=== PATIENT | male | born 1960 | race Asian ===

== ENCOUNTER 2017-06-09 15:09 | Emergency (ER) | payer OTHER ==
[~2017-06-09] VITALS: Ht 162.6 cm; Wt 67.1 kg
[~2017-06-09 15:09] MED LIST: FERROUS SULFAT325 M3 PO; PERCOCET 5-3251 EACH PO; PRAVACHOL80 M1 PO; PROTONIX40 M3 PO; RW; TOPROL XL25 M1 PO
--- NOTE | 2017-06-09 15:46 | ED GI/GU/ABDOMINAL COMPLAINT ---
History of Present Illness General Chief Complaint: General Adult Stated Complaint: PT WAS SENT TO ED CT SCAN Source: patient Exam Limitations: no limitations Vital Signs & Intake/Output Vital Signs & Intake/Output Vital Signs Date Time Temp Pulse Resp B/P B/P Pulse O2 O2 Flow FiO2 Mean Ox Delivery Rate 06/09 2026 98.0 68 16 124/74 99 Room Air 06/09 1805 98.3 72 16 131/73 98 Room Air 06/09 1603 98 Room Air 06/09 1517 98.7 81 18 137/86 98 Room Air Allergies Coded Allergies: atorvastatin (From LIPITOR) (Intermediate, RASH 01/02/17) Reconcile Medications Clopidogrel Bisulfate (Clopidogrel) 75 MG TABLET 1 TAB PO DAILY CAD (Reported ) Ferrous Sulfate 325 MG (65 MG IRON) TABLET 1 TAB PO DAILY ANEMIA (Reported) Metoprolol Succ XL (Toprol XL) 25 MG TAB 0.5 TAB PO DAILY CAD (Reported) Oxycodone HCl/Acetaminophen (Percocet 5-325 MG Tablet) 5 MG-325 MG TABLET 1 TAB PO Q4-6 PRN postop pain Pantoprazole Sodium (Protonix) 40 MG TABLET.DR 1 TAB PO BID GERD (Reported) Pravastatin Sodium (Pravachol) 40 MG TABLET 1 TAB PO DAILY CHOLESTEROL ( Reported) Triage Note: PT SENT IN BY PCP DR. MURRAY FOR ABSENT BOWEL SOUNDS. PT HAS RECENT DIOGNOSIS OF BOWEL CA WITH RESECTION IN NOVEMBER OF LAST YEAR. PT LAST CHEMO WAS ON THURSDAY AND NOW PT RESENTS WITH ACUTE ABD PAIN. Triage Nurses Notes Reviewed? yes Onset: Abrupt Duration: hour(s): (5 am), constant Timing: recent history Quality/Severity: moderate Radiation: periumbilical Activities at Onset: none HPI: 49-year-old male with a history of colon cancer with a partial colon resection 6 months ago that is currently undergoing chemotherapy comes in with complaints of abdominal pain. Patient reports that he started to experience the pain around 5 AM. It is a twisting pain that is intermittent. Denies any fever chills vomiting. He had a normal bowel movement this morning. He passed gas a couple hours ago. Comes in for further evaluation. (Gianni KAUFFMAN,Toni) Past History Travel History Traveled to [place] past 21 day No Medical History Any Pertinent Medical History? see below for history Neurological: NONE EENT: NONE Cardiovascular: CAD, hypertension, hyperlipidemia, myocardial infarction Respiratory: NONE Gastrointestinal: lower GI bleed Hepatic: NONE Renal: NONE Musculoskeletal: NONE Psychiatric: NONE Endocrine: NONE Blood Disorders: NONE Cancer(s): bladder cancer, colon/rectal cancer History of MRSA: No History of VRE: No History of CDIFF: No Surgical History Surgical History: STENT PLACEMENT (12/2015) BLADDER TUMOR REMOVAL Psychosocial History Who do you live with Spouse What is your primary language French Tobacco Use: Never used ETOH Use: denies use Illicit Drug Use: denies illicit drug use Family History Hx Contributory? No (Toni Dorsey) Review of Systems Review of Systems Constitutional: Reports: no symptoms. EENTM: Reports: no symptoms. Respiratory: Reports: no symptoms. Cardiovascular: Reports: no symptoms. GI: Reports: see HPI. Genitourinary: Reports: no symptoms. Musculoskeletal: Reports: no symptoms. Skin: Reports: no symptoms. Neurological/Psychological: Reports: no symptoms. Hematologic/Endocrine: Reports: no symptoms. Immunologic/Allergic: Reports: no symptoms. All Other Systems: Reviewed and Negative (Toni Dorsey) Physical Exam Physical Exam General Appearance: well developed/nourished, alert, awake, mild distress Head: atraumatic Eyes: Bilateral: normal appearance. Ears, Nose, Throat, Mouth: hearing grossly normal, moist mucous membrane Neck: normal inspection Respiratory: no respiratory distress Cardiovascular: regular rate/rhythm, edema Gastrointestinal: normal bowel sounds, soft, non-tender Back: normal inspection Extremities: normal range of motion Neurologic/Psych: awake, alert, oriented x 3 Core Measures ACS in differential dx? No Sepsis Present: No Sepsis Focused Exam Completed? No (Toni Dorsey) Progress Differential Diagnosis: appendicitis, bowel obstruction, diverticulitis, SBO, ureterolithiasis Plan of Care: Orders Procedure Date/time Status URINALYSIS 06/09 1928 Complete LACTIC ACID 06/09 1846 Complete LIPASE 06/09 1546 Complete LACTIC ACID 06/09 1546 Complete COMPREHENSIVE METABOLIC PANEL 06/09 1546 Complete CBC WITHOUT DIFFERENTIAL 06/09 1546 Complete AMYLASE 06/09 1546 Complete Laboratory Tests 06/09/17 1940: Urine Color YEL, Urine Clarity CLEAR, Urine pH 6.5, Ur Specific [place] 1.010, Urine Protein NEG, Urine Ketones NEG, Urine Nitrite NEG, Urine Bilirubin NEG, Urine Urobilinogen 0.2, Ur Leukocyte Esterase NEG, Ur Microscopic EXAM NOT REQUIRED, Urine Hemoglobin NEG, Urine Glucose NEG 06/09/17 1859: Lactic Acid 0.9 06/09/17 1550: Anion Gap 15, Estimated GFR > 60, BUN/Creatinine Ratio 17.8, Glucose 230 H, Lactic Acid 2.3 H, Calcium 9.5, Total Bilirubin 0.8, AST 24, ALT 30, Alkaline Phosphatase 311 H, Total Protein 7.8, Albumin 4.5, Globulin 3.3, Albumin/ Globulin Ratio 1.4, Amylase 91, Lipase 196, CBC w Diff MAN DIFF ORDERED, RBC 4.95, MCV 89.6, MCH 30.8, MCHC 34.4, RDW 13.7, MPV 7.3 L, Gran % 92.1 H, Lymphocytes % 5.0 L, Monocytes % 2.5, Eosinophils % 0.3, Basophils % 0.1, Absolute Granulocytes 18.9 H, Segmented Neutrophils 74, Band Neutrophils 15 H, Absolute Lymphocytes 1.0 L, Lymphocytes 9 L, Monocytes 2, Absolute Monocytes 0.5, Absolute Eosinophils 0.1, Absolute Basophils 0, Platelet Estimate DECREASED , Poikilocytosis 1+, Anisocytosis 1+, Stomatocytes FEW Diagnostic Imaging: Viewed by Me: CT Scan. Discussed w/RAD: CT Scan. Radiology Impression: PATIENT: STEVEN ESCOBEDO PRESENT AGE : 57 PATIENT ACCOUNT NO: [id number] : 58 LOCATION: [facility] ORDERING PHYSICIAN: Toni KAUFFMAN SERVICE DATE: 06/09/17 EXAM TYPE: CAT - CT ABD & PELVIS W IV CONTRAST EXAMINATION: CT ABDOMEN AND PELVIS WITH CONTRAST CLINICAL INFORMATION: Abdominal pain. Pain around surgical incision for colon cancer COMPARISON: None TECHNIQUE: Multidetector volumetric imaging was performed of the abdomen and pelvis following IV administration of 95 mL of Optiray 320 intravenous contrast. Sagittal and coronal reformatted images were obtained on the technologist's workstation. DLP: 265.44 mGy-cm FINDINGS: LUNG BASES: The visualized lung bases are unremarkable. LIVER, GALLBLADDER, AND BILIARY TREE: The liver is normal in size, shape, and attenuation. No focal hepatic lesion or biliary ductal dilatation is present. The gallbladder is unremarkable with no evidence of radiopaque gallstones, gallbladder wall thickening, or obvious pericholecystic inflammatory changes. PANCREAS: Unremarkable. SPLEEN: Spleen is enlarged measuring 14.5 cm superior inferior. Spleen measures 12.1 cm AP by 7.1 cm transverse. No focal splenic lesion. ADRENAL GLANDS: Unremarkable. KIDNEYS AND URETERS: The kidneys are normal in size, shape, and attenuation. No hydronephrosis, hydroureter, or calculi seen. No perinephric stranding. BLADDER: Unremarkable. GASTROINTESTINAL TRACT: Status post colonic surgery with surgical anastomosis at the mid distal descending colon. Anastomosis is intact. There is no bowel wall thickening. No bowel obstruction. Moderate volume of stool throughout the colon. Surgical suture line at the tip of the cecum consistent with prior appendectomy. The small bowel loops are normal. ABDOMINAL WALL: Midline subcutaneous scar from prior surgical incision. There is no ventral wall hernia. There is no inflammation or focal fluid collection or abscess. The abdominal wall musculature is normal. LYMPH NODES: Normal. VASCULAR: There are scattered vascular calcifications of the distal aorta and common iliac arteries without aneurysm. PELVIC VISCERA: Prostate measures 5 cm transverse. OSSEOUS STRUCTURES: Unremarkable. IMPRESSION: 1. There is a linear scar in the subcutaneous tissue at the midline anterior abdominal wall from prior surgery. There is no acute change of the abdominal wall. 2. Status post prior partial colectomy with surgical anastomosis at the left colon which is intact. Status post appendectomy. No acute change of the bowel. 3. Mild splenomegaly. DICTATED BY: Lan Posadas MD DATE/TIME DICTATED:02/26 DOVETAIL MACHINE OPERATOR:FAM DATE/TIME TRANSCRIBED:06/09/171728 CONFIDENTIAL, DO NOT COPY WITHOUT APPROPRIATE AUTHORIZATION. <Electronically signed in Other Vendor System> SIGNED BY: Lan Posadas MD 06/09/171738 Initial ED EKG: none (Toni Dorsey) Departure Departure Disposition: HOME OR SELF CARE Condition: Stable Clinical Impression Primary Impression: Abdominal pain Referrals: Jazmin Murray MD (PCP/Family) Additional Instructions: Follow-up with your general surgeon and primary care doctor and oncologist. Return if any other concerns worsening symptoms. Return if any pain migrates to the right lower abdomen. Please go over all results of today's visit with your primary care doctor. Contact your primary care doctor to let them know you were here in the emergency room. There may be nonspecific findings which may not be related to your visit today here in the emergency room but may require further evaluation and chronic monitoring by your primary care doctor. If you had a laceration today the chance of foreign body always remains. You should follow-up with your primary care doctor for recheck in 3-5 days for a wound check. If you had an x-ray done there is a chance that a fracture could have been missed on initial read and you should follow-up with your primary care doctor for repeat x-rays if symptoms persist. If your blood pressure was elevated here in the emergency room please have rec[facility] doctor within the next 48. If you were prescribed a narcotic here in the emergency room or any type of controlled substances you're not allowed to drive while taking this medication or operate any type of heavy machinery. Narcotics can make you feel lightheaded dizziness nausea and can cause constipation. You may need to tile picker a stool softener. Thank you for choosing [facility] emergency room. Please return to the emergency room immediately if you have any other concerns worsening of symptoms. Departure Forms: Customer Survey General Discharge Information Comments 06/09/2017 9:03:25 PM Spoke with the substation inspector oncologist for dr rhonda betancourt. He is on nulasta which will explain the white blood cell count being elevated. He currently has no abdominal pain. Spoke with Dr. Cummins. He reviewed the CAT scan. No acute abdomen on exam. At this time safely discharged. White blood cell count be followed up. Both consultants are in agreement with discharge and close interval follow-up. (Gianni KAUFFMAN,Toni) PA/CONTAINER PACKER OPERATOR Co-Sign Statement Statement: ED Attending supervision documentation- x I saw and evaluated the patient. I have also reviewed all the pertinent lab results and diagnostic results. I agree with the findings and the plan of care as documented in the PA's/CONTAINER PACKER OPERATOR's documentation. [] I have reviewed the ED Record and agree with the PA's/CONTAINER PACKER OPERATOR's documentation. [] Additions or exceptions (if any) to the PAs/CONTAINER PACKER OPERATOR's note and plan are summarized below: [] (Nadeem CASTELLON,Medardo)
[2017-06-09 16:02] LABS: ABSOLUTE BASOPHIL COUNT 0 /CUMM (0.0-0.2); ABSOLUTE EOSINOPHIL COUNT 0.1 /CUMM (0.0-0.7); ABSOLUTE GRANULOCYTE CT 18.9 /CUMM (1.4-6.5); ABSOLUTE MONOCYTE COUNT 0.5 /CUMM (0.10-0.60); BASOPHIL % 0.1 % (0.0-2.0); EOSINOPHIL % 0.3 % (0-5); GRANULOCYTE % 92.1 % (42.2-75.2); HEMATOCRIT 44.4 % (42-52); MEAN CORPUSCULAR HGB 30.8 PG (27.0-31.0); MEAN CORPUSCULAR HGB CONC 34.4 G/DL (33.0-37.0); MEAN CORPUSCULAR VOLUME 89.6 FL (80.0-94.0); MEAN PLATELET VOLUME 7.3 FL (7.4-10.4); PLATELET COUNT 130 /CUMM (130-400); RBC DISTRIBUTION WIDTH 13.7 % (11.5-14.5); RED BLOOD CELL CT 4.95 /CUMM (4.70-6.10); WHITE BLOOD CELL COUNT 20.5 /CUMM (4.8-10.8)
--- NOTE | 2017-06-09 17:39 | CT SCAN REPORT ---
EXAMINATION: CT ABDOMEN AND PELVIS WITH CONTRAST CLINICAL INFORMATION: Abdominal pain. Pain around surgical incision for colon cancer COMPARISON: None TECHNIQUE: Multidetector volumetric imaging was performed of the abdomen and pelvis following IV administration of 95 mL of Optiray 320 intravenous contrast. Sagittal and coronal reformatted images were obtained on the technologist's workstation. DLP: 265.44 mGy-cm FINDINGS: LUNG BASES: The visualized lung bases are unremarkable. LIVER, GALLBLADDER, AND BILIARY TREE: The liver is normal in size, shape, and attenuation. No focal hepatic lesion or biliary ductal dilatation is present. The gallbladder is unremarkable with no evidence of radiopaque gallstones, gallbladder wall thickening, or obvious pericholecystic inflammatory changes. PANCREAS: Unremarkable. SPLEEN: Spleen is enlarged measuring 14.5 cm superior inferior. Spleen measures 12.1 cm AP by 7.1 cm transverse. No focal splenic lesion. ADRENAL GLANDS: Unremarkable. KIDNEYS AND URETERS: The kidneys are normal in size, shape, and attenuation. No hydronephrosis, hydroureter, or calculi seen. No perinephric stranding. BLADDER: Unremarkable. GASTROINTESTINAL TRACT: Status post colonic surgery with surgical anastomosis at the mid distal descending colon. Anastomosis is intact. There is no bowel wall thickening. No bowel obstruction. Moderate volume of stool throughout the colon. Surgical suture line at the tip of the cecum consistent with prior appendectomy. The small bowel loops are normal. ABDOMINAL WALL: Midline subcutaneous scar from prior surgical incision. There is no ventral wall hernia. There is no inflammation or focal fluid collection or abscess. The abdominal wall musculature is normal. LYMPH NODES: Normal. VASCULAR: There are scattered vascular calcifications of the distal aorta and common iliac arteries without aneurysm. PELVIC VISCERA: Prostate measures 5 cm transverse. OSSEOUS STRUCTURES: Unremarkable. IMPRESSION: 1. There is a linear scar in the subcutaneous tissue at the midline anterior abdominal wall from prior surgery. There is no acute change of the abdominal wall. 2. Status post prior partial colectomy with surgical anastomosis at the left colon which is intact. Status post appendectomy. No acute change of the bowel. 3. Mild splenomegaly.
[2017-06-09 20:27] VITALS: BP 124/74
== END 2017-06-09 20:32 ==
LOC: ERH 15:09
PROVIDERS: Physician Assistant Medical
DX: R10.33 Periumbilical pain (principal)
CPT/HCPCS: 74177; 81003

== ENCOUNTER 2017-07-15 10:00 | Inpatient (IN) | payer OTHER ==
[~2017-07-15] VITALS: Ht 162.6 cm; Wt 62.1 kg
[2017-07-15 11:43] LABS: ABSOLUTE BASOPHIL COUNT 0.1 /CUMM (0.0-0.2); ABSOLUTE EOSINOPHIL COUNT 0 /CUMM (0.0-0.7); ABSOLUTE GRANULOCYTE CT 7.1 /CUMM (1.4-6.5); ABSOLUTE LYMPH COUNT 0.8 /CUMM (1.2-3.4); ABSOLUTE MONOCYTE COUNT 0.3 /CUMM (0.10-0.60); BASOPHIL % 0.9 % (0.0-2.0); EOSINOPHIL % 0.2 % (0-5); HEMATOCRIT 40.7 % (42-52); MEAN CORPUSCULAR HGB 31.3 PG (27.0-31.0); MEAN CORPUSCULAR HGB CONC 35.2 G/DL (33.0-37.0); MEAN CORPUSCULAR VOLUME 88.8 FL (80.0-94.0); MEAN PLATELET VOLUME 9.1 FL (7.4-10.4); PLATELET COUNT 101 /CUMM (130-400); RBC DISTRIBUTION WIDTH 12.9 % (11.5-14.5); RED BLOOD CELL CT 4.58 /CUMM (4.70-6.10); WHITE BLOOD CELL COUNT 8.4 /CUMM (4.8-10.8)
[2017-07-15 12:13] LABS: GRANULOCYTE % 85.1 % (42.2-75.2)
--- NOTE | 2017-07-15 12:29 | ED GENERAL ADULT ---
History of Present Illness General Chief Complaint: General Adult Stated Complaint: SIB DR WELLS, BS, NO HX OF DM Source: patient, family Exam Limitations: no limitations Vital Signs & Intake/Output Vital Signs & Intake/Output Vital Signs Date Time Temp Pulse Resp B/P B/P Pulse O2 O2 Flow FiO2 Mean Ox Delivery Rate 07/15 1520 66 18 115/68 98 Room Air 07/15 1519 Room Air 07/15 1401 98.6 72 16 111/56 100 Room Air 07/15 1225 98.0 76 17 116/81 100 Room Air 07/15 1014 98.2 74 18 135/84 98 Room Air Allergies Coded Allergies: atorvastatin (From LIPITOR) (Intermediate, RASH 01/02/17) Reconcile Medications Aspirin (Aspirin*) 81 MG TAB.CHEW 1 TAB PO DAILY HEART HEALTH (Reported) Clopidogrel Bisulfate (Clopidogrel) 75 MG TABLET 1 TAB PO DAILY CAD (Reported ) Metoprolol Succ XL (Toprol XL) 25 MG TAB 0.5 TAB PO DAILY CAD (Reported) Pravastatin Sodium (Pravachol) 80 MG TABLET 1 TAB PO DAILY CHOLESTEROL ( Reported) Triage Note: [address] [facility]SSARD [facility] FOR HYPERGLYCEMIA WITH ACCUCHECK IN 500'S AND RECENT FATIGUE AND WEAKNESS X2 WEEKS. ENDORSES POLYDYPSIA, INCREASED URINATION, CRAMPING TO HANDS, BLURRED VISION X1 WEEK. DENIES HEADACHE/N/V/D OR ABDOMINAL PAIN. DENIES HX OF DIABETES. CURRENTLY UNDERGOING CHEMOTHERAPY FOR STAGE 3 COLON CA, PLACED ON NEUTROPENIC PRECAUTIONS AND FACE MASK PROVIDED Triage Nurses Notes Reviewed? yes HPI: Patient is a 57-year-old male with diagnosis one year ago of colon cancer status post partial bowel resection without ostomy, who is currently undergoing chemotherapy every 3 weeks, without radiation, and who is sent in today from his oncology office for profound weakness and hyperglycemia. The patient last received a dosage of chemotherapy 3 weeks ago and in fact was due for his next dosage today. When his called yesterday to inform his oncology team that he has been feeling fatigued, thirsty, and was urinating frequently, they instructed him to come to the office for evaluation rather than infusion today. He was referred in from the office after his blood glucose was found to be greater than 500. Upon my initial encounter the patient is generally nontoxic and in no acute distress, but he does endorse profound fatigue, malaise, weakness, and the rest of the HPI as above. Past History Travel History Traveled to [place] past 21 day No Medical History Any Pertinent Medical History? see below for history Neurological: NONE EENT: NONE Cardiovascular: CAD, hypertension, hyperlipidemia, myocardial infarction Respiratory: NONE Gastrointestinal: lower GI bleed, COLON CA Hepatic: NONE Renal: NONE Musculoskeletal: NONE Psychiatric: NONE Endocrine: NONE Blood Disorders: NONE Cancer(s): bladder cancer, colon/rectal cancer History of MRSA: No History of VRE: No History of CDIFF: No Surgical History Surgical History: STENT PLACEMENT (12/2015) BLADDER TUMOR REMOVAL Psychosocial History Who do you live with Spouse What is your primary language Divehi Tobacco Use: Quit >30 days ago Family History Hx Contributory? No Review of Systems Review of Systems Constitutional: Reports: see HPI, fever, malaise, weakness. EENTM: Reports: no symptoms. Respiratory: Reports: no symptoms. Cardiovascular: Reports: no symptoms. GI: Reports: see HPI. Denies: abdominal pain. Genitourinary: Reports: no symptoms. Musculoskeletal: Reports: no symptoms. Skin: Reports: no symptoms. Neurological/Psychological: Reports: no symptoms. Hematologic/Endocrine: Reports: see HPI, polyuria, polydipsia. Immunologic/Allergic: Reports: no symptoms. All Other Systems: Reviewed and Negative Physical Exam Physical Exam General Appearance: well developed/nourished, no apparent distress, alert, comfortable Comments: HEENT: Inspection of the head reveals a normocephalic cranium with no signs of trauma. Ophtho: Extraocular muscles are intact and pupils are equal and reactive to light bilaterally with no afferent pupillary defect. The sclera are noninjected , and there is no obvious discharge. Neck: The trachea is midline, there is no obvious asymmetry or mass over the thyroid, and there is no midline cervical spine tenderness Respiratory: The lungs are clear and equal to auscultation bilaterally without wheezes, rales, or rhonchi. The patient exhibits no signs of labored breathing. Cardiac: Regular rhythm and non-tachycardic without appreciable murmurs on auscultation. No obvious JVD. GI: Examination of the abdomen reveals no significant focal tenderness in any of the four quadrants. There is negative Clement's sign, negative McBurney's point tenderness, negative Jewel sign, negative Hart-Al sign, and no signs of peritonitis whatsoever on percussion or deep palpation. The skin is intact with no sign of trauma or infection. : Deferred Neuro: The patient is oriented to person, place, time, and situation, with no obvious focal motor deficits. There were no sensory deficits, and the patient exhibit purposeful movement of all 4 extremities. Cranial nerves II through XII are intact, and gait is normal. Behavioral: Calm and cooperative Dermatologic: Dermatologic examination reveals no diffuse rashes or exanthems, no petechiae, no ecchymoses, and no other signs of erythema or infection. Core Measures ACS in differential dx? No CVA/TIA Diagnosis: No Sepsis Present: No Sepsis Focused Exam Completed? No Progress Differential Diagnoses I considered the following diagnoses in my evaluation of the patient: New-onset diabetes, simple hyperglycemia, multiple other possible endocrinologic pathologies Plan of Care: Orders Procedure Date/time Status Regular Diet 07/16 B Active Patient Data 07/15 161 Active ED Holding Orders 07/15 1605 Active Admit to inpatient 07/15 1605 Active Code Status 07/15 1605 Active URINALYSIS 07/15 1116 Complete COMPREHENSIVE METABOLIC PANEL 07/15 1116 Complete CBC WITHOUT DIFFERENTIAL 07/15 1116 Complete Current Medications Sig/Ade Start time Last Medication Dose Stop Time Status Admin Insulin Human Regular 10 UNITS ONCE ONE 07/15 1615 CAN (NovoLIN R) 07/15 1616 Sodium Chloride 1,000 ML BOLUS ONE 07/15 1615 AC 07/15 (Normal Saline 0.9%) 07/15 1714 1530 Laboratory Tests 07/15/17 1320: Urine Color YEL, Urine Clarity CLEAR, Urine pH 6.0, Ur Specific [place] 1.010, Urine Protein NEG, Urine Ketones 15 H, Urine Nitrite NEG, Urine Bilirubin NEG, Urine Urobilinogen 0.2, Ur Leukocyte Esterase NEG, Ur Microscopic EXAM NOT REQUIRED, Urine Hemoglobin NEG, Urine Glucose >=1000 H 07/15/17 1135: Anion Gap 11, Estimated GFR > 60, BUN/Creatinine Ratio 13.8, Glucose 569 *H, Calcium 9.1, Total Bilirubin 0.6, AST 33, ALT 41, Alkaline Phosphatase 207 H, Total Protein 6.8, Albumin 3.9, Globulin 2.9, Albumin/Globulin Ratio 1.3, CBC w Diff NO MAN DIFF REQ, RBC 4.58 L, MCV 88.8, MCH 31.3 H, MCHC 35.2, RDW 12.9, MPV 9.1, Gran % 85.1 H, Lymphocytes % 9.7 L, Monocytes % 4.1, Eosinophils % 0.2, Basophils % 0.9, Absolute Granulocytes 7.1 H, Absolute Lymphocytes 0.8 L, Absolute Monocytes 0.3, Absolute Eosinophils 0, Absolute Basophils 0.1 Initial ED EKG: none Comments: Patient with colon cancer and no history of diabetes presented today for hyperglycemia greater than 500. Laboratory studies were otherwise unremarkable. After 2 L of fluid and no supplemental insulin, because came down to 250. I discussed the case with Dr. Kelsey from endocrinology who recommended hospitalization for further workup. Departure Departure Time of Disposition: 1634 Disposition: STILL A PATIENT Condition: Stable Clinical Impression Primary Impression: Hyperglycemia Referrals: Jazmin Sherman MD (PCP/Family) Departure Forms: Customer Survey General Discharge Information Admission Note Spoke With: Arturo CASTELLON,Meghann Miles Documentation of Exam: Documentation of any treatments & extenuating circumstances including Concerns Regarding Discharge (functional status, medication knowledge or non-compliance, living conditions, etc.) that warrant an admission rather than observation: Patient presented for hyperglycemia which was a new diagnosis for him. No history of diabetes. Discussed case with endocrinology subspecialist who felt that discharge home was unsafe as the patient could decompensate, and that IV fluid rehydration, supplemental insulin, and formal consultation with further laboratory studies is necessary to ensure safety. Admitted for this workup. Critical Care Note Critical Care Note Critical Care Time: non-applicable
[2017-07-15] MEDS ORDERED: ASPIRIN81 M4 PO (12:31)
--- NOTE | 2017-07-15 16:52 | History & Physical ---
Christiano CASTELLON,Dominic 07/15/17 8018: General Information and HPI MD Statement: I have seen and personally examined STEVEN ESCOBEDO and documented this H&P. The patient is a 57 year old M who presented with a patient stated chief complaint of [hyperglycemia and weakness]. Source of Information: patient, family, old records Exam Limitations: no limitations History of Present Illness: Patient is a 57-year-old male with past medical history of colon cancer status past bowel resection without ostomy currently on a chemotherapy every 3 weeks, hypertension, CAD status post NC and stents currently on aspirin, hyperlipidemia presenting this admission after being seen by his oncologist, Dr. Sarah due to weakness and blood sugar of greater than 500. Patient's was present at time of interview. States that patient has not been feeling well over the past one week. Patient endorses hand cramping, blurry vision, polyuria and polydipsia. Patient reports that he has been drinking over 2 L of pop over the past one week. Patient endorses a 10 pound weight loss over the past 3 weeks. Patient reports dizziness and lightheadedness upon standing which has resolved while in the ED. Patient denies any nausea/vomiting, abdominal pain, fever/chills, dysuria/hematuria, shortness of breath, cough or chest pain. Patient's states that she spoke to a nurse on Thursday and was told it was likely that the patient has been taking too much sugar from the large amount of pop he has been ingesting. Patient stopped drinking pop 2 days prior to this admission. Past medical history as above Family history: Significant for brother diagnosed with diabetes in his 40s Allergies: No known allergies Meds: Currently on aspirin 81 mg, metoprolol 12.5 mg, pravastatin 80 mg. Patient was taken off Plavix December 2016. Patient's senior javascript developer is Dr. Norwood who he followed up with 1-2 months prior to this admission. Patient sees the following practitioners: PCP: Boby Sherman MD Heavy Line Technician: Dr. Norwood Fur Trapper: Dr. Garcia Surgeon: Senthil Cummins MD Oncologist: Dr. Sarah Allergies/Medications Allergies: Coded Allergies: atorvastatin (From LIPITOR) (Intermediate, RASH 01/02/17) Past History Travel History Traveled to [place] past 21 day No Medical History Neurological: NONE EENT: NONE Cardiovascular: CAD, hypertension, hyperlipidemia, myocardial infarction Respiratory: NONE Gastrointestinal: lower GI bleed, COLON CA Hepatic: NONE Renal: NONE Musculoskeletal: NONE Psychiatric: NONE Endocrine: NONE Blood Disorders: NONE Cancer(s): bladder cancer, colon/rectal cancer History of MRSA: No History of VRE: No History of CDIFF: No Surgical History Surgical History: STENT PLACEMENT (12/2015) BLADDER TUMOR REMOVAL Review of Systems Review of Systems Constitutional: Reports: see HPI, weakness, unexplained weight loss. Cardiovascular: Denies: no symptoms. Respiratory: Denies: no symptoms. GI: Denies: no symptoms. Genitourinary: Reports: see HPI, frequency. Musculoskeletal: Denies: no symptoms. Skin: Denies: no symptoms. Neurological/Psychological: Reports: numbness, tingling, weakness. Hematologic/Endocrine: Reports: polyuria, polydipsia. Exam & Diagnostic Data Last 24 Hrs of Vital Signs/I&O Vital Signs Date Time Temp Pulse Resp B/P B/P Pulse O2 O2 Flow FiO2 Mean Ox Delivery Rate 07/15 1757 98.5 68 20 128/76 97 Room Air 07/15 1647 98.2 66 18 120/75 99 Room Air 07/15 1520 66 18 115/68 98 Room Air / 1519 Room Air 07/15 1401 98.6 72 16 111/56 100 Room Air 07/15 1225 98.0 76 17 116/81 100 Room Air / 1014 98.2 74 18 135/84 98 Room Air Intake & Output 07/15 1600 /06 0800 06 0000 Intake Total 1000 Output Total Balance 1000 Intake, IV 1000 Patient 137 lb Weight Physical Exam General Appearance Alert, Oriented X3, Cooperative, No Acute Distress Skin No Rashes Skin Temp/Moisture Exam: Warm/Dry Sepsis Skin Exam (color): Normal for Ethnicity HEENT Atraumatic, PERRLA, EOMI, dry mucosal membranes Cardiovascular Regular Rate, Normal S1, Normal S2 Lungs Clear to Auscultation, Normal Air Movement Abdomen Normal Bowel Sounds, Soft, No Tenderness Neurological Normal Speech, Strength at 5/5 X4 Ext, Normal Tone, Sensation Intact, Cranial Nerves 3-12 NL Extremities No Clubbing, No Cyanosis, No Edema, Normal Pulses, No Tenderness/ Swelling Last 24 Hrs of Labs/Nilo: Laboratory Tests 07/15/17 1320: Urine Color YEL, Urine Clarity CLEAR, Urine pH 6.0, Ur Specific [place] 1.010, Urine Protein NEG, Urine Ketones 15 H, Urine Nitrite NEG, Urine Bilirubin NEG, Urine Urobilinogen 0.2, Ur Leukocyte Esterase NEG, Ur Microscopic EXAM NOT REQUIRED, Urine Hemoglobin NEG, Urine Glucose >=1000 H 07/15/17 1135: Anion Gap 11, Estimated GFR > 60, BUN/Creatinine Ratio 13.8, Glucose 569 *H, Hemoglobin A1c Pending, Calcium 9.1, Total Bilirubin 0.6, AST 33, ALT 41, Alkaline Phosphatase 207 H, Total Protein 6.8, Albumin 3.9, Globulin 2.9, Albumin/Globulin Ratio 1.3, CBC w Diff NO MAN DIFF REQ, RBC 4.58 L, MCV 88.8, MCH 31.3 H, MCHC 35.2, RDW 12.9, MPV 9.1, Gran % 85.1 H, Lymphocytes % 9.7 L, Monocytes % 4.1, Eosinophils % 0.2, Basophils % 0.9, Absolute Granulocytes 7.1 H, Absolute Lymphocytes 0.8 L, Absolute Monocytes 0.3, Absolute Eosinophils 0, Absolute Basophils 0.1 Microbiology 07/15 1742 BLOOD: Blood Culture - COLB 07/15 1742 BLOOD: Blood Culture - COLB 07/16 1319 URINE ROUT: Urine Culture - RECD Assessment/Plan Assessment: Patient is a 57-year-old male with past medical history of colon cancer status past bowel resection without ostomy currently on a chemotherapy every 3 weeks, hypertension, CAD status post NC and stents currently on aspirin, hyperlipidemia presenting this admission after being seen by his oncologist, Dr. Sarah due to weakness and hyperglycemia. Patient reported 1 week of polydipsia, polyuria, and lethargy. Patient's BG has been in the 300s to 500s. Patient appears volume depleted with dry mucosal membranes. Labs are signficant for blood glucose of 598, Na of 133, U/A revealing ketones and glycosuria with >1000 glucose. Patient has received 3L of NS in the ED with improvement in his symptoms. Patient is stable with no significant signs of diabetic ketoacidosis and therfore will be admitted to the general medicine floor for management of the followin. New onset diabetes Patient is presenting with classic symptoms with polyruia, polydipsia, + ketonuria, glycosuria, multiple elevated glucose readings. Patient has +family history placing him at higher risk. Patient is currently receiving chemotherapy for colon cancer which puts him at greater risk of infection which may be a precipitating factor. Patient's chemotherapy itself may cause hyperglycemia especially if he is receiving prednisone. Patient is seeing Dr. Nicolas- will confirm with him the chemotherapy regimen. 2. Pseudohyponatremia - When Na of 133 is adjusted for glucose, his corrected Na is 141 (addition of 1.6 mmol/L of Na for every 100 mg per dL increase of glucose ) History of Colon Cancer S/P left hemicolectomy currently receiving chemotherapy 3. History of CAD s/p NC and stent on aspirin only, HTN, HLD Plan: Admit to general medicine Monitor vitals qshift Accuchecks TIDAC/qHS Hemoglobin A1c BEP and CBC in AM CXR U/A Urine culture and blood cultures Start Levemir 10 units (based on 0.4units/kg/day) Continue IV fluid hydration with NS @ 100cc/hr Endocrinology consulted. Appreciate recommendations Novolog SS TID/qHS per endo recommendations Continue home medications: metoprolol, pravastatin, aspirin Diet: Consistent Carb Code: Full code DVT PPx: ALPs, Lovenox As Ranked By This Provider Problem List: 1. Hyperglycemia 2. S/P colectomy Core Measures/Misc (10/26) Acute Coronary Syndrome ACS Diagnosis: No Congestive Heart Failure Congestive Heart Failure Diagnosis No Cerebrovascular Accident CVA/TIA Diagnosis: No VTE (View Protocol) VTE Risk Factors Age>40 No Mechanical VTE Prophylaxis d/t N/A MechProphylax Ordered No VTE Pharm Prophylaxis d/t NA PharmProphylax ordered Sepsis (View protocol) Sepsis Present: No If YES complete Sepsis Event Note If YES complete Sepsis Event Note Meghann Morris MD 07/15/17 8876: General Information and HPI Allergies/Medications Home Med list Aspirin (Aspirin*) 81 MG TAB.CHEW 1 TAB PO DAILY HEART HEALTH (Reported) Metoprolol Succ XL (Toprol XL) 25 MG TAB 0.5 TAB PO DAILY CAD (Reported) Pravastatin Sodium (Pravachol) 80 MG TABLET 1 TAB PO DAILY CHOLESTEROL ( Reported) Past Family/Social History Psychosocial History Other Social History: Family history not contributory to present illness. Core Measures/Misc (10/26) Sepsis (View protocol) If YES complete Sepsis Event Note If YES complete Sepsis Event Note Attending MD Review Statement Attending Statement Attending MD Statement: examined this patient, discuss w/resident/PA/FINANCIAL SERVICES REPRESENTATIVE, agreed w/resident/PA/FINANCIAL SERVICES REPRESENTATIVE, reviewed EMR data (avail), discussed with nursing, reviewed images Attending Assessment/Plan: 57-year-old male past medical history of colon CA status post partial colectomy and actively receiving chemotherapy. He also has a history of coronary artery disease and has had a stent placed in December 2015. He gets chemotherapy periodically at the [facility] but for the past few weeks has been feeling very fatigued, with polyuria, polydipsia and blurry vision. When he went to the [facility] today his blood sugar was checked and it was over 500 and he was sent to the emergency room. He does not have an anion gap acidosis however he does have ketones in the urine, is visibly dehydrated and hyponatremic. At this point will bring him into GEN med, hydrate him with IV normal saline. The ER already called Dr. Kelsey from endocrinology to see him and will follow his recommendations. He will need basal and bolus insulin coverage given that he is a brand-new diabetic. There is no obvious focus for infection but given that he is actively getting chemotherapy will get blood cultures, UA, urine culture and chest x-ray. We'll continue his aspirin, Plavix, beta robby and statin. We'll put him on DVT prophylaxis and follow closely. Tabatha Dodson 07/15/17 1746: Core Measures/Misc (10/26) Sepsis (View protocol) If YES complete Sepsis Event Note If YES complete Sepsis Event Note Resident Review Statement Other Findings: Patient is 57-year-old male with past medical history of corneal heart disease, hypertension, hyperlipidemia, NC status post stent treatment placement 2 years ago, colon cancer status post resection in 2017 with ongoing chemotherapy (every 3 weeks) with Dr. WELLS. Patient went for his chemotherapy today when he was found to have blood sugar off 569. Patient was advised to come to ER. In ER his fingersticks remained 489, 349, 256. Patient reported classical symptoms of new onset diabetes with polydipsia, polyuria, blurring of vision, weight loss of 10 pounds in last 3 weeks. Of note patient mentions that since last week he has been drinking a lot of nondiet sodas. Patient denies any current source of infection, denies cough, burning micturition, any wounds or cuts on the body. In ER his labs and vitals as above. Will admit the patient on Gen. medicine floor, continue him on IV fluids for 2-4 L, check his fingersticks tid/hs, based on patient's weight, he should get 10 units of Levemir at baseline and low-dose NovoLog sliding scale. We'll also obtain endocrinology consult. We will also check his HbA1c We'll also evaluate the patient for possible source of infection will get chest x-ray, urine culture, blood culture and follow-up. Patient reports that he is on aspirin, beta robby and statin will continue. DVT prophylaxis Lovenox Patient is full code
--- NOTE | 2017-07-15 17:55 | Cons- Endocrinology ---
General Information and HPI Consulting Request Date of Consult: 07/15/17 Requested By: medical team Reason for Consult: uncontrolled diabetes Source of Information: patient, family, old records Exam Limitations: no limitations History of Present Illness: This 57-year-old male has not been feeling well. He noticed blurred vision, increased thirst, increased urination and at least a 10 pound weight loss over the past few weeks. He went to his oncology appointment today and his blood sugar was checked and was over 500. The patient denies any previous history of diabetes. His brother does have diabetes. This patient has a history of colon cancer. He has had a resection of his colon is being treated with chemotherapy. He has numbness and tingling of his fingers or toes and has been told this is secondary to the chemotherapy. The patient also has a history of cardiovascular disease. His status post stents for coronary artery disease and has been treated for hypertension and hyperlipidemia. He has a previous history of myocardial infarction. His lab work when he came to the ER shows glucose 569 BUN 11 creatinine 0.8 sodium 133 potassium 4.2 chloride 98 CO2 24 anion gap normal at 11 alk phos mildly elevated otherwise liver tests are normal. Allergies/Medications Allergies: Coded Allergies: atorvastatin (From LIPITOR) (Intermediate, RASH 01/02/17) Home Med List: Aspirin (Aspirin*) 81 MG TAB.CHEW 1 TAB PO DAILY HEART HEALTH (Reported) Insulin Aspart, Recombinant (Novolog Flexpen) 100 UNIT/ML INSULN.PEN 0 SC SEE ADMIN CRITERIA DIABETES BG <80 - drink juice 80-150 3 units 151-200 4 201-250 5 251-300 6 301-350 7 351-400 8 >400 -8, call Insulin Detemir (Levemir Flextouch) 100 UNIT/ML (3 ML) INSULN.PEN 6 UNITS SC AT BEDTIME DIABETES MELLITUS . Metoprolol Succ XL (Toprol XL) 25 MG TAB 0.5 TAB PO DAILY CAD (Reported) Pravastatin Sodium (Pravachol) 80 MG TABLET 1 TAB PO DAILY CHOLESTEROL ( Reported) Current Medications: Current Medications Sig/Ade Start time Last Medication Dose Route Stop Time Status Admin Acetaminophen 650 MG Q8P PRN 07/15 1800 UNVr PO Aspirin 81 MG DAILY 07/16 899 AC PO Enoxaparin Sodium 40 MG DAILY 07/16 899 UNVr SC Insulin Aspart 0 TIDAC 06/07 0800 AC SC Insulin Human Regular 10 UNITS ONCE ONE 07/15 1615 CAN IV 07/15 1616 Metoprolol Succinate 12.5 MG DAILY 07/16 0900 AC PO Pravastatin Sodium 80 MG 1700 07/16 1700 AC PO Sodium Chloride 1,000 ML Q10H 07/15 1730 AC IV Sodium Chloride 1,000 ML BOLUS ONE 07/15 1615 DC 07/15 IV 07/15 1714 1530 Sodium Chloride 1,000 ML BOLUS ONE 07/15 1230 DC 07/15 IV 07/15 1329 1230 Sodium Chloride 1,000 ML BOLUS ONE 07/15 1130 DC 07/15 IV 07/15 1229 1135 Review of Systems Review of Systems Constitutional: Denies: chills, fever. Cardiovascular: Denies: chest pain. Respiratory: Denies: short of breath. GI: Denies: abdominal pain, vomiting. Genitourinary: Reports: frequency. Musculoskeletal: Denies: back pain. Skin: Reports: no symptoms. Neurological/Psychological: Reports: paresthesia, tingling. Past History Travel History Traveled to [place] past 21 day No Medical History Neurological: NONE EENT: NONE Cardiovascular: CAD, hypertension, hyperlipidemia, myocardial infarction Respiratory: NONE Gastrointestinal: lower GI bleed, COLON CA Hepatic: NONE Renal: NONE Musculoskeletal: NONE Psychiatric: NONE Endocrine: NONE Blood Disorders: NONE Cancer(s): bladder cancer, colon/rectal cancer Surgical History Surgical History: STENT PLACEMENT (12/2015) BLADDER TUMOR REMOVAL Exam & Diagnostic Data Last 24 Hrs of Vital Signs/I&O Vital Signs Date Time Temp Pulse Resp B/P B/P Pulse O2 O2 Flow FiO2 Mean Ox Delivery Rate 07/15 1647 98.2 66 18 120/75 99 Room Air 07/15 1520 66 18 115/68 98 Room Air 07/15 1519 Room Air 07/15 1401 98.6 72 16 111/56 100 Room Air 07/15 1225 98.0 76 17 116/81 100 Room Air 07/15 1014 98.2 74 18 135/84 98 Room Air Intake & Output 07/15 1600 06 0800 06 0000 Intake Total 1000 Output Total Balance 1000 Intake, IV 1000 Patient 137 lb Weight Physical Exam General Appearance: well developed/nourished Head: normal appearance Eyes: Bilateral: normal appearance. Neck: normal inspection Respiratory: normal breath sounds Cardiovascular: regular rate/rhythm Gastrointestinal: normal bowel sounds Extremities: normal inspection Labs/Nilo Results: Laboratory Tests 07/15 07/15 1320 1135 Chemistry Sodium (137 - 145 mmol/L) 133 L Potassium (3.5 - 5.1 mmol/L) 4.2 Chloride (98 - 107 mmol/L) 98 Carbon Dioxide (22 - 30 mmol/L) 24 Anion Gap (5 - 16) 11 BUN (9 - 20 mg/dL) 11 Creatinine (0.7 - 1.2 mg/dL) 0.8 Estimated GFR (>60 ml/min) > 60 BUN/Creatinine Ratio (7 - 25 %) 13.8 Glucose (65 - 99 mg/dL) 569 *H Hemoglobin A1c (4.2 - 5.8 %) Pending Calcium (8.4 - 10.2 mg/dL) 9.1 Total Bilirubin (0.2 - 1.3 mg/dL) 0.6 AST (17 - 59 U/L) 33 ALT (21 - 72 U/L) 41 Alkaline Phosphatase (< 127 U/L) 207 H Total Protein (6.3 - 8.2 g/dL) 6.8 Albumin (3.5 - 5.0 g/dL) 3.9 Globulin (1.9 - 4.2 gm/dL) 2.9 Albumin/Globulin Ratio (1.1 - 2.2 %) 1.3 Hematology CBC w Diff NO MAN DIFF REQ WBC (4.8 - 10.8 /CUMM) 8.4 RBC (4.70 - 6.10 /CUMM) 4.58 L Hgb (14.0 - 18.0 G/DL) 14.3 Hct (42 - 52 %) 40.7 L MCV (80.0 - 94.0 FL) 88.8 MCH (27.0 - 31.0 PG) 31.3 H MCHC (33.0 - 37.0 G/DL) 35.2 RDW (11.5 - 14.5 %) 12.9 Plt Count (130 - 400 /CUMM) 101 L MPV (7.4 - 10.4 FL) 9.1 Gran % (42.2 - 75.2 %) 85.1 H Lymphocytes % (20.5 - 51.1 %) 9.7 L Monocytes % (1.7 - 9.3 %) 4.1 Eosinophils % (0 - 5 %) 0.2 Basophils % (0.0 - 2.0 %) 0.9 Absolute Granulocytes (1.4 - 6.5 /CUMM) 7.1 H Absolute Lymphocytes (1.2 - 3.4 /CUMM) 0.8 L Absolute Monocytes (0.10 - 0.60 /CUMM) 0.3 Absolute Eosinophils (0.0 - 0.7 /CUMM) 0 Absolute Basophils (0.0 - 0.2 /CUMM) 0.1 Urines Urine Color (YEL,AMB,STR) YEL Urine Clarity (CLEAR) CLEAR Urine pH (5.0 - 8.0) 6.0 Ur Specific [place] (1.001 - 1.035) 1.010 Urine Protein (NEG,<30 MG/DL) NEG Urine Ketones (NEG) 15 H Urine Nitrite (NEG) NEG Urine Bilirubin (NEG) NEG Urine Urobilinogen (0.1 - 1.0 EU/dl) 0.2 Ur Leukocyte Esterase (NEG) NEG Ur Microscopic EXAM NOT REQUIRED Urine Hemoglobin (NEG) NEG Urine Glucose (N MG/DL) >=1000 H Assessment/Plan Assessment/Plan 57-year-old male with a known history of colon cancer status post resection of his colon and now receiving chemotherapy came to the emergency room because he was found to have high blood sugar. He was symptomatic with increased thirst and increased urination, and blurred vision prior to admission. He also has numbness and tingling of his fingers or toes but has been told this is secondary to the chemotherapy he is receiving. When he was thirsty he would drink regular soda because he did not realize he had diabetes. The patient presents with a high sugar of 569 and evidence of dehydration and hyponatremia. He has a normal carbon dioxide and anion gap so there is no evidence of significant ketoacidosis. The patient has already received 3 L of normal saline. At this time I would suggest placing the patient on Levemir 10 units once a day to start tonight. In addition we should place him on sliding scale NovoLog before meals. Sliding scale NovoLog before meals should be 80-150 give 3 units NovoLog, 151- 200 give 4 units NovoLog, 201-250 give 5 units NovoLog, 251-300 give 6 units NovoLog, 301-350 give 7 units NovoLog, 351-400 give 8 units NovoLog. A separate sliding scale NovoLog should be written at bedtime. Sliding scale NovoLog at bedtime should be less than 250 give no insulin, 251-300 give 2 units NovoLog 301-350 give 3 units NovoLog 351-400 give 4 units NovoLog. We need to order a diabetic diet for this patient. He needs dietary instruction. In addition he will need to be taught how to use a glucose meter to test his sugar and also how to administer insulin. Consult Acknowledgment - Thank you for your consult request.
[2017-07-15 17:57] VITALS: BP 128/76
--- NOTE | 2017-07-15 21:27 | RADIOLOGY REPORT ---
EXAMINATION: XR CHEST CLINICAL INFORMATION: EVALUATE FOR ANY SOURCE OF INFECTION COMPARISON: Chest x-ray 01/06/2017 TECHNIQUE: 2 views of the chest were obtained. FINDINGS: The central port catheter is is been placed via a right subclavian approach. The catheter is coiled over the base of the right neck with the catheter tip at the right superior mediastinum. There is no pneumothorax. Lungs are clear. Cardiac and mediastinal contours are normal. No pulmonary vascular congestion. No pleural effusion. IMPRESSION: 1. Central port catheter has been placed via a right subclavian approach. The catheter is coiled over the base of the right neck with the catheter tip at the right superior mediastinum. 2. No acute abnormality of the chest. Lungs are clear.
[2017-07-15 23:20] VITALS: BP 115/77
[2017-07-16 05:59] LABS: ABSOLUTE BASOPHIL COUNT 0 /CUMM (0.0-0.2); ABSOLUTE EOSINOPHIL COUNT 0 /CUMM (0.0-0.7); ABSOLUTE GRANULOCYTE CT 5.3 /CUMM (1.4-6.5); ABSOLUTE MONOCYTE COUNT 0.4 /CUMM (0.10-0.60); BASOPHIL % 0.2 % (0.0-2.0); EOSINOPHIL % 0.4 % (0-5); GRANULOCYTE % 78.7 % (42.2-75.2); HEMATOCRIT 36.3 % (42-52); MEAN CORPUSCULAR HGB 31.2 PG (27.0-31.0); MEAN CORPUSCULAR HGB CONC 34.7 G/DL (33.0-37.0); MEAN CORPUSCULAR VOLUME 89.8 FL (80.0-94.0); MEAN PLATELET VOLUME 8.1 FL (7.4-10.4); PLATELET COUNT 96 /CUMM (130-400); RBC DISTRIBUTION WIDTH 12.9 % (11.5-14.5); RED BLOOD CELL CT 4.04 /CUMM (4.70-6.10); WHITE BLOOD CELL COUNT 6.8 /CUMM (4.8-10.8)
[2017-07-16 06:40] VITALS: BP 115/71
--- NOTE | 2017-07-16 07:21 | PN- Housestaff ---
Christiano CASTELLON,Dominic 07/16/17 0721: Subjective Follow-up For: New onset diabetes Colon cancer s/p resection on chemotherapy via port-a-cath - coiled on XRay Pseudohyponatremia - resolved Subjective: Patient was seen and examined today. Patients BG overnight: 105, 259, 256, 349, 489 Review of Systems Constitutional: Reports: see HPI. Objective Last 24 Hrs of Vital Signs/I&O Vital Signs Date Time Temp Pulse Resp B/P B/P Pulse O2 O2 Flow FiO2 Mean Ox Delivery Rate 07/16 0640 97.9 60 18 115/71 98 Room Air 06/ 2320 98.2 68 20 115/77 95 Room Air 06/ 1757 98.5 68 20 128/76 97 Room Air 06/06 1647 98.2 66 18 120/75 99 Room Air / 1520 66 18 115/68 98 Room Air /06 1519 Room Air 06/ 1401 98.6 72 16 111/56 100 Room Air / 1225 98.0 76 17 116/81 100 Room Air / 1014 98.2 74 18 135/84 98 Room Air Intake & Output 07/16 0800 06/ 0000 06/06 1600 Intake Total 184 622 9804 Output Total 400 Balance 514 640 3233 Intake, IV 505 829 5828 Output, Urine 400 Patient 137 lb 137 lb Weight Weight Reported by Patient Measurement Method Physical Exam General Appearance: Alert, Oriented X3, Cooperative, No Acute Distress Skin Temp/Moisture Exam: Warm/Dry HEENT: Atraumatic, Mucous Membr. moist/pink Cardiovascular: Regular Rate, Normal S1, Normal S2, No Murmurs Lungs: Clear to Auscultation, Normal Air Movement Abdomen: Normal Bowel Sounds, Soft, No Tenderness Neurological: Normal Speech, Strength at 5/5 X4 Ext, Normal Tone, Sensation Intact, Cranial Nerves 3-12 NL Extremities: No Clubbing, No Cyanosis, No Edema, Normal Pulses, No Tenderness/ Swelling Vascular: Normal Pulses, Pulses Symmetrical Last 24 Hrs of Lab/Nilo Results Last 24 Hrs of Labs/Mics: Laboratory Tests 07/16/17 0545: Anion Gap 7, Estimated GFR > 60, BUN/Creatinine Ratio 11.4, CBC w Diff NO MAN DIFF REQ, RBC 4.04 L, MCV 89.8, MCH 31.2 H, MCHC 34.7, RDW 12.9, MPV 8.1, Gran % 78.7 H, Lymphocytes % 15.1 L, Monocytes % 5.6, Eosinophils % 0.4, Basophils % 0.2, Absolute Granulocytes 5.3, Absolute Lymphocytes 1.0 L, Absolute Monocytes 0.4, Absolute Eosinophils 0, Absolute Basophils 0 07/15/17 1320: Urine Color YEL, Urine Clarity CLEAR, Urine pH 6.0, Ur Specific [place] 1.010, Urine Protein NEG, Urine Ketones 15 H, Urine Nitrite NEG, Urine Bilirubin NEG, Urine Urobilinogen 0.2, Ur Leukocyte Esterase NEG, Ur Microscopic EXAM NOT REQUIRED, Urine Hemoglobin NEG, Urine Glucose >=1000 H 07/15/17 1135: Anion Gap 11, Estimated GFR > 60, BUN/Creatinine Ratio 13.8, Glucose 569 *H, Hemoglobin A1c Pending, Calcium 9.1, Total Bilirubin 0.6, AST 33, ALT 41, Alkaline Phosphatase 207 H, Total Protein 6.8, Albumin 3.9, Globulin 2.9, Albumin/Globulin Ratio 1.3, CBC w Diff NO MAN DIFF REQ, RBC 4.58 L, MCV 88.8, MCH 31.3 H, MCHC 35.2, RDW 12.9, MPV 9.1, Gran % 85.1 H, Lymphocytes % 9.7 L, Monocytes % 4.1, Eosinophils % 0.2, Basophils % 0.9, Absolute Granulocytes 7.1 H, Absolute Lymphocytes 0.8 L, Absolute Monocytes 0.3, Absolute Eosinophils 0, Absolute Basophils 0.1 Microbiology 07/15 2210 BLOOD: Blood Culture - RECD 07/15 2205 BLOOD: Blood Culture - RECD 07/15 1320 URINE ROUT: Urine Culture - RECD Assessment/Plan Assessment: Patient is a 57-year-old male with past medical history of colon cancer status past bowel resection without ostomy currently on a chemotherapy every 3 weeks, hypertension, CAD status post [place] and stents currently on aspirin, hyperlipidemia presenting this admission after being seen by his oncologist, Dr. Sarah due to weakness and hyperglycemia. Patient reported 1 week of polydipsia, polyuria, and lethargy. Patient's BG has been in the 300s to 500s. Patient appears volume depleted with dry mucosal membranes. Labs are signficant for blood glucose of 598, Na of 133, U/A revealing ketones and glycosuria with >1000 glucose. Patient has received 3L of NS in the ED with improvement in his symptoms. Patient is stable with no significant signs of diabetic ketoacidosis and therfore will be admitted to the general medicine floor for management of the followin. New onset diabetes Patient is presenting with classic symptoms with polyruia, polydipsia, + ketonuria, glycosuria, multiple elevated glucose readings. Patient has +family history placing him at higher risk. Patient is currently receiving chemotherapy for colon cancer which puts him at greater risk of infection which may be a precipitating factor. Patient's chemotherapy itself may cause hyperglycemia especially if he is receiving prednisone. Spoke to Dr. Nicolas today- patient is receiving folfox which itself does not cause hyperglycemia however the suspension it is in has a significant amount of glucose. Patient does also receive steroids which may have precipitated this event. Patient's Hemoglobin A1c today was 12.4. - patient's sugars today have improved signficantly with improvement in his symptoms as well 2. Pseudohyponatremia - When Na of 133 is adjusted for glucose, his corrected Na is 141 (addition of 1.6 mmol/L of Na for every 100 mg per dL increase of glucose ) History of Colon Cancer S/P left hemicolectomy currently receiving chemotherapy 3. History of CAD s/p [place] and stent on aspirin only, HTN, HLD 4. History of Colon Cancer s/p resection with a Port Cath in the Right subclavian I spoke to Dr. Sousa in IR today who reviewed the chest xray. Stated the port cath does need to be adjusted prior to patient's chemotherapy next week. Patient had the port placed by surgery (Dr. Lund) in December 2016. Plan: Admit to general medicine Monitor vitals qshift Accuchecks TIDAC/qHS Follow up Urine culture and blood cultures Decreased Levemir to 6 units per endo Discontinued IV fluid hydration with NS @ 100cc/hr Endocrinology consulted. Appreciate recommendations Novolog SS TID/qHS per endo recommendations Continue home medications: metoprolol, pravastatin, aspirin Will require diabetic teaching prior to discharge Diet: Consistent Carb Code: Full code DVT PPx: ALPs, Lovenox Problem List: 1. Diabetes mellitus, new onset Pain Ratin Pain Location: n/a Pain Goal: Remain pain free Pain Plan: n/a Tomorrow's Labs & Rationales: giovanny Copeland MD,Breana 07/16/17 1237: Attending MD Review Statement Attending Statement Attending MD Statement: examined this patient, discuss w/resident/PA/WAFER FABRICATION TECHNICIAN, agreed w/resident/PA/WAFER FABRICATION TECHNICIAN, discussed with family, reviewed EMR data (avail), discussed with nursing, discussed with case mgmt, amended to note Attending Assessment/Plan: Patient is a very pleasant middle-aged gentleman who was unfortunately being newly diagnosed with diabetes mellitus. Given his significantly elevated A1c level he will need to be managed with insulin at the very least initially. Patient and are in agreement with this plan. His glucose levels have improved compared to presentation. We will monitor him on the current insulin regimen recommended by the endocrinology service. Diabetic teaching as well as teaching by the nursing staff on use of insulin therapy will be initiated today. Glucose levels continue to improve or no untoward hypoglycemia he may be discharged home tomorrow. He is to follow-up with his primary care provider and he will be provided a referral to the endocrinology service as well. Urinalysis shows no evidence of proteinuria. No need for starting STAR inhibitor or ARB therapy for now. Imaging report shows his Port-A-Cath is coiled. Recommend evaluation by the IR service.
--- NOTE | 2017-07-16 08:24 | PN- Diabetes ---
Assessment/Plan Diabetes Assessment: The patient feels better today. His blood sugar was down to 105 this morning. He received 10 units of Levemir last night. He is also going to be started on sliding scale NovoLog. I spoke with Dr. Sepulveda and the patient does receive a large dose of dexamethasone with each of his chemotherapy treatments. His treatments are every 3 weeks. He has about 3 treatments left. Plan: Suggest reduce Levemir to 6 units once a day at bedtime. Continue sliding scale NovoLog before meals and at bedtime as previously written. The patient should be on a diabetic diet consistent carbohydrate 2. We need to monitor her sugars in the hospital today. The patient is well hydrated at present and his IV fluids can be stopped. Increase activity. Subjective Subjective: Feels improved Review of Systems Constitutional: Denies: chills, fever. Cardiovascular: Denies: chest pain. Respiratory: Denies: short of breath. Gastrointestinal: Denies: abdominal pain, nausea, vomiting. Skin: Reports: no symptoms. Objective Last 24 Hrs of Vital Signs/I&O Vital Signs Date Time Temp Pulse Resp B/P B/P Pulse O2 O2 Flow FiO2 Mean Ox Delivery Rate 07/16 0640 97.9 60 18 115/71 98 Room Air 06/06 2320 98.2 68 20 115/77 95 Room Air 06/06 1757 98.5 68 20 128/76 97 Room Air 06/06 1647 98.2 66 18 120/75 99 Room Air 06/06 1520 66 18 115/68 98 Room Air 06/06 1519 Room Air 06/06 1401 98.6 72 16 111/56 100 Room Air 06/06 1225 98.0 76 17 116/81 100 Room Air 06/06 1014 98.2 74 18 135/84 98 Room Air Intake & Output 07/16 1600 06/07 0800 06/07 0000 Intake Total 800 300 Output Total 400 Balance 400 300 Intake, IV 800 300 Output, Urine 400 Patient 137 lb Weight Weight Reported by Patient Measurement Method Physical Exam General Appearance: alert, awake, comfortable Neck: normal inspection Respiratory: normal breath sounds Cardiovascular: regular rate/rhythm Abdomen: normal bowel sounds Extremities: normal inspection Current Medications: Current Medications Sig/Ade Start time Last Medication Dose Route Stop Time Status Admin Acetaminophen 650 MG Q8P PRN 07/15 1800 AC PO Aspirin 81 MG DAILY 07/16 0900 AC PO Enoxaparin Sodium 40 MG DAILY 07/16 899 AC SC Insulin Aspart 0 AT BEDTIME 07/16 2100 DC SC Insulin Aspart 0 TIDAC 07/17 799 AC SC Insulin Aspart 0 AT BEDTIME 07/15 2215 AC 07/15 SC 2232 Insulin Detemir 10 UNITS AT BEDTIME 07/15 2100 AC 07/15 SC 2202 Insulin Detemir 10 UNITS .[5 PM ] 07/15 1915 CAN SC Insulin Human Regular 10 UNITS ONCE ONE 07/15 1615 CAN IV 07/15 1616 Metoprolol Succinate 12.5 MG DAILY 07/16 899 AC PO Pravastatin Sodium 80 MG 1700 07/16 1700 AC PO Sodium Chloride 1,000 ML Q10H 07/15 1730 AC 07/16 IV 0338 Sodium Chloride 1,000 ML BOLUS ONE 07/15 1615 DC 07/15 IV 07/15 1714 1530 Sodium Chloride 1,000 ML BOLUS ONE 07/15 1230 DC 07/15 IV 07/15 1329 1230 Sodium Chloride 1,000 ML BOLUS ONE 07/15 1130 DC 07/15 IV 07/15 1229 1135 Findings Pertinent Lab/Nilo Results: Laboratory Tests 07/16 07/15 0545 1320 Chemistry Sodium (137 - 145 mmol/L) 139 Potassium (3.5 - 5.1 mmol/L) 3.5 Chloride (98 - 107 mmol/L) 107 Carbon Dioxide (22 - 30 mmol/L) 25 Anion Gap (5 - 16) 7 BUN (9 - 20 mg/dL) 8 L Creatinine (0.7 - 1.2 mg/dL) 0.7 Estimated GFR (>60 ml/min) > 60 BUN/Creatinine Ratio (7 - 25 %) 11.4 Glucose (65 - 99 mg/dL) Pending Hematology CBC w Diff NO MAN DIFF REQ WBC (4.8 - 10.8 /CUMM) 6.8 RBC (4.70 - 6.10 /CUMM) 4.04 L Hgb (14.0 - 18.0 G/DL) 12.6 L Hct (42 - 52 %) 36.3 L MCV (80.0 - 94.0 FL) 89.8 MCH (27.0 - 31.0 PG) 31.2 H MCHC (33.0 - 37.0 G/DL) 34.7 RDW (11.5 - 14.5 %) 12.9 Plt Count (130 - 400 /CUMM) 96 L MPV (7.4 - 10.4 FL) 8.1 Gran % (42.2 - 75.2 %) 78.7 H Lymphocytes % (20.5 - 51.1 %) 15.1 L Monocytes % (1.7 - 9.3 %) 5.6 Eosinophils % (0 - 5 %) 0.4 Basophils % (0.0 - 2.0 %) 0.2 Absolute Granulocytes (1.4 - 6.5 /CUMM) 5.3 Absolute Lymphocytes (1.2 - 3.4 /CUMM) 1.0 L Absolute Monocytes (0.10 - 0.60 /CUMM) 0.4 Absolute Eosinophils (0.0 - 0.7 /CUMM) 0 Absolute Basophils (0.0 - 0.2 /CUMM) 0 Urines Urine Color (YEL,AMB,STR) YEL Urine Clarity (CLEAR) CLEAR Urine pH (5.0 - 8.0) 6.0 Ur Specific [place] (1.001 - 1.035) 1.010 Urine Protein (NEG,<30 MG/DL) NEG Urine Ketones (NEG) 15 H Urine Nitrite (NEG) NEG Urine Bilirubin (NEG) NEG Urine Urobilinogen (0.1 - 1.0 EU/dl) 0.2 Ur Leukocyte Esterase (NEG) NEG Ur Microscopic EXAM NOT REQUIRED Urine Hemoglobin (NEG) NEG Urine Glucose (N MG/DL) >=1000 H 06/06 1135 Chemistry Sodium (137 - 145 mmol/L) 133 L Potassium (3.5 - 5.1 mmol/L) 4.2 Chloride (98 - 107 mmol/L) 98 Carbon Dioxide (22 - 30 mmol/L) 24 Anion Gap (5 - 16) 11 BUN (9 - 20 mg/dL) 11 Creatinine (0.7 - 1.2 mg/dL) 0.8 Estimated GFR (>60 ml/min) > 60 BUN/Creatinine Ratio (7 - 25 %) 13.8 Glucose (65 - 99 mg/dL) 569 *H Hemoglobin A1c (4.2 - 5.8 %) 12.4 H Calcium (8.4 - 10.2 mg/dL) 9.1 Total Bilirubin (0.2 - 1.3 mg/dL) 0.6 AST (17 - 59 U/L) 33 ALT (21 - 72 U/L) 41 Alkaline Phosphatase (< 127 U/L) 207 H Total Protein (6.3 - 8.2 g/dL) 6.8 Albumin (3.5 - 5.0 g/dL) 3.9 Globulin (1.9 - 4.2 gm/dL) 2.9 Albumin/Globulin Ratio (1.1 - 2.2 %) 1.3 Hematology CBC w Diff NO MAN DIFF REQ WBC (4.8 - 10.8 /CUMM) 8.4 RBC (4.70 - 6.10 /CUMM) 4.58 L Hgb (14.0 - 18.0 G/DL) 14.3 Hct (42 - 52 %) 40.7 L MCV (80.0 - 94.0 FL) 88.8 MCH (27.0 - 31.0 PG) 31.3 H MCHC (33.0 - 37.0 G/DL) 35.2 RDW (11.5 - 14.5 %) 12.9 Plt Count (130 - 400 /CUMM) 101 L MPV (7.4 - 10.4 FL) 9.1 Gran % (42.2 - 75.2 %) 85.1 H Lymphocytes % (20.5 - 51.1 %) 9.7 L Monocytes % (1.7 - 9.3 %) 4.1 Eosinophils % (0 - 5 %) 0.2 Basophils % (0.0 - 2.0 %) 0.9 Absolute Granulocytes (1.4 - 6.5 /CUMM) 7.1 H Absolute Lymphocytes (1.2 - 3.4 /CUMM) 0.8 L Absolute Monocytes (0.10 - 0.60 /CUMM) 0.3 Absolute Eosinophils (0.0 - 0.7 /CUMM) 0 Absolute Basophils (0.0 - 0.2 /CUMM) 0.1
[2017-07-16 13:29] VITALS: BP 115/72
[2017-07-16 23:03] VITALS: BP 117/78
[2017-07-17 06:53] VITALS: BP 105/64
--- NOTE | 2017-07-17 07:22 | PN- Housestaff ---
Christiano CASTELLON,Dominic 07/17/17721: Subjective Follow-up For: New onset diabetes Colon cancer s/p resection on chemotherapy via port-a-cath - coiled on XRay Pseudohyponatremia - resolved Subjective: Patient was seen and examined today. Patient denies any complaints today. Patients BG overnight: 152, 215, 217, 201 Review of Systems Constitutional: Reports: see HPI. Objective Last 24 Hrs of Vital Signs/I&O Vital Signs Date Time Temp Pulse Resp B/P B/P Pulse O2 O2 Flow FiO2 Mean Ox Delivery Rate 07/17 0653 98.2 64 20 105/64 98 Room Air 07/16 2303 98.3 67 18 117/78 97 Room Air 07/16 1329 98.2 68 17 115/72 97 Room Air 07/16 0830 60 115/71 Intake & Output 07/17 0800 07/17 0000 07/16 1600 Intake Total 1125 Output Total Balance 1125 Intake, IV 285 Intake, Oral 840 Patient 137 lb Weight Physical Exam General Appearance: Alert, Cooperative, No Acute Distress Other Physical Findings: Skin Temp/Moisture Exam: Warm/Dry HEENT: Atraumatic, Mucous Membr. moist/pink Cardiovascular: Regular Rate, Normal S1, Normal S2, No Murmurs Lungs: Clear to Auscultation, Normal Air Movement Abdomen: Normal Bowel Sounds, Soft, No Tenderness Neurological: Normal Speech, Strength at 5/5 X4 Ext, Normal Tone, Sensation Intact, Cranial Nerves 3-12 NL Extremities: No Clubbing, No Cyanosis, No Edema, Normal Pulses, No Tenderness/ Swelling Vascular: Normal Pulses, Pulses Symmetrical Current Medications: Current Medications Sig/Ade Start time Last Medication Dose Route Stop Time Status Admin Acetaminophen 650 MG Q8P PRN 07/15 1800 AC PO Aspirin 81 MG DAILY 07/16 899 AC 07/16 PO 0830 Enoxaparin Sodium 40 MG DAILY 07/16 899 AC 07/16 SC 0830 Insulin Aspart 0 TIDAC 07/17 799 AC 07/16 MT 173 Insulin Aspart 0 AT BEDTIME 07/15 2215 AC 07/15 MT 2232 Insulin Detemir 6 UNITS AT BEDTIME 07/16 2099 AC 07/16 MT 2119 Insulin Detemir 10 UNITS AT BEDTIME 07/15 2100 DC 07/15 MT 220 Metoprolol Succinate 12.5 MG DAILY 07/16 899 07/16 PO 0830 Patient Medication 1 ED ONE ONE 07/16 1645 [facility] ED 07/16 1646 Pravastatin Sodium 80 MG 1700 07/16 1700 07/16 PO 1732 Sodium Chloride 1,000 ML Q10H 07/15 1730 NM 07/16 IV 0338 Assessment/Plan Assessment: Patient is a 57-year-old male with past medical history of colon cancer status past bowel resection without ostomy currently on a chemotherapy every 3 weeks, hypertension, CAD status post [place] and stents currently on aspirin, hyperlipidemia presenting this admission after being seen by his oncologist, Dr. Sarah due to weakness and hyperglycemia. Patient reported 1 week of polydipsia, polyuria, and lethargy. Patient's BG has been in the 300s to 500s. Patient appears volume depleted with dry mucosal membranes. Labs are signficant for blood glucose of 598, Na of 133, U/A revealing ketones and glycosuria with >1000 glucose. Patient has received 3L of NS in the ED with improvement in his symptoms. Patient is stable with no significant signs of diabetic ketoacidosis and therfore will be admitted to the general medicine floor for management of the followin. New onset diabetes Patient is presenting with classic symptoms with polyruia, polydipsia, + ketonuria, glycosuria, multiple elevated glucose readings. Patient has +family history placing him at higher risk. Patient is currently receiving chemotherapy for colon cancer which puts him at greater risk of infection which may be a precipitating factor. Patient's chemotherapy itself may cause hyperglycemia especially if he is receiving prednisone. Spoke to Dr. Nicolas today- patient is receiving folfox which itself does not cause hyperglycemia however the suspension it is in has a significant amount of glucose. Patient does also receive steroids which may have precipitated this event. Patient's Hemoglobin A1c today was 12.4. - patient's sugars today have improved signficantly with improvement in his symptoms as well 2. Pseudohyponatremia - When Na of 133 is adjusted for glucose, his corrected Na is 141 (addition of 1.6 mmol/L of Na for every 100 mg per dL increase of glucose ) History of Colon Cancer S/P left hemicolectomy currently receiving chemotherapy 3. History of CAD s/p [place] and stent on aspirin only, HTN, HLD 4. History of Colon Cancer s/p resection with a Port Cath in the Right subclavian I spoke to Dr. Sousa in IR today who reviewed the chest xray. Stated the port cath does need to be adjusted prior to patient's chemotherapy next week. Patient had the port placed by surgery (Dr. Lund) in December 2016. Spoke to Dr. Echeverria today - patient has been scheduled to see Dr. Lund on Thursday, July 21 to have the port cath adjusted. Plan: Admit to general medicine Monitor vitals qshift Accuchecks TIDAC/qHS Continue Levemir to 6 units per endo Novolog SS TID per endo recommendations Continue home medications: metoprolol, pravastatin, aspirin Will require diabetic teaching prior to discharge Patient will follow up with Dr. Cummins on July 21 to adjust port cath Diet: Consistent Carb Code: Full code DVT PPx: ALPs, Lovenox Dispo: discharge home today with VNA services for new onset diabetic teaching Problem List: 1. Diabetes mellitus, new onset Pain Ratin Pain Location: n/a Pain Goal: Remain pain free Pain Plan: n/a Tomorrow's Labs & Rationales: none Dinorah CASTELLON,Breana 07/17/17 1405: Attending MD Review Statement Attending Statement Attending MD Statement: examined this patient, discuss w/resident/PA/MOVE COORDINATOR, agreed w/resident/PA/MOVE COORDINATOR, reviewed EMR data (avail), discussed with nursing, discussed with case mgmt, amended to note Attending Assessment/Plan: Patient seen and examined. No issues overnight reported by nursing staff. Remains afebrile and hemodynamically stable. Resting comfortably and not in any acute distress. Blood glucose levels have improved. Endocrinology follow-up appreciated. Patient will be discharged home after undergoing insulin training. He will follow-up with endocrinology service as an outpatient. His catheter was noted to be coiled and this was discussed with the surgical service. He will be followed up in the outpatient setting by his general surgeon for readjustment of the catheter. This has been explained in detail to the patient and he verbalized understanding.
--- NOTE | 2017-07-17 08:05 | PN- Diabetes ---
Assessment/Plan Diabetes Assessment: The patient feels well. His blood sugars are under reasonable control. His fingerstick blood sugar this morning was 152. Plan: If The patient is sent home today he can go home on insulin . This should consist of Levemir 6 units at bedtime and also NovoLog before meals only. We can stop the bedtime NovoLog coverage. The patient needs prescriptions for insulin pens. This prescription should be Levemir FlexPen dispense 5 pens with the direction to use 6 units daily in the evening. He also needs a prescription for NovoLog flex pens dispense 5 pens with the direction to use up to 30 units daily in divided doses before meals according to the sliding scale. The patient will need a prescription for pen needles. This should be BD Isaura pen needles dispense 200 with the directions to use four daily. The patient needs a prescription for glucose meter and test strips and lancets. He should check his sugar 4 times a day that is before each meal and at bedtime. Subjective Subjective: Feels okay Review of Systems Constitutional: Denies: chills, fever. Cardiovascular: Denies: chest pain. Respiratory: Denies: cough, short of breath. Gastrointestinal: Denies: nausea, vomiting. Skin: Reports: no symptoms. Objective Last 24 Hrs of Vital Signs/I&O Vital Signs Date Time Temp Pulse Resp B/P B/P Pulse O2 O2 Flow FiO2 Mean Ox Delivery Rate 06/08 0757 64 108/66 06/08 0653 98.2 64 20 105/64 98 Room Air 06/07 2303 98.3 67 18 117/78 97 Room Air 06/07 1329 98.2 68 17 115/72 97 Room Air 06/07 0830 60 115/71 Vital Signs Date Time Temp Pulse Resp B/P B/P Pulse O2 O2 Flow FiO2 Mean Ox Delivery Rate 06/08 0757 64 108/66 06/08 0653 98.2 64 20 105/64 98 Room Air 06/07 2303 98.3 67 18 117/78 97 Room Air 06/07 1329 98.2 68 17 115/72 97 Room Air 06/07 0830 60 115/71 Physical Exam General Appearance: alert, awake, comfortable Head: normal appearance Neck: normal inspection Respiratory: normal breath sounds Abdomen: normal bowel sounds Extremities: normal inspection Current Medications: Current Medications Sig/Ade Start time Last Medication Dose Route Stop Time Status Admin Acetaminophen 650 MG Q8P PRN 07/15 1800 AC PO Aspirin 81 MG DAILY 07/16 899 AC 07/17 PO 0756 Enoxaparin Sodium 40 MG DAILY 07/16 09 AC 07/17 SC 0757 Insulin Aspart 0 TIDAC 07/16 0800 AC 07/17 SC 0758 Insulin Aspart 0 AT BEDTIME 07/15 2215 AC 07/15 SC 223 Insulin Detemir 6 UNITS AT BEDTIME 07/16 2100 AC 07/16 SC 211 Insulin Detemir 10 UNITS AT BEDTIME 07/15 2100 DC 07/15 SC 220 Metoprolol Succinate 12.5 MG DAILY 07/16 09 AC 07/17 PO 0757 Patient Medication 1 ED ONE ONE 07/16 1645 DC Teaching ED 07/16 1646 Pravastatin Sodium 80 MG 1700 07/16 1700 AC 07/16 PO 1732 Sodium Chloride 1,000 ML Q10H 07/15 1730 DC 07/16 IV 0338 Findings Pertinent Lab/Nilo Results: Laboratory Tests 07/16 07/15 0545 1320 Chemistry Sodium (137 - 145 mmol/L) 139 Potassium (3.5 - 5.1 mmol/L) 3.5 Chloride (98 - 107 mmol/L) 107 Carbon Dioxide (22 - 30 mmol/L) 25 Anion Gap (5 - 16) 7 BUN (9 - 20 mg/dL) 8 L Creatinine (0.7 - 1.2 mg/dL) 0.7 Estimated GFR (>60 ml/min) > 60 BUN/Creatinine Ratio (7 - 25 %) 11.4 Glucose (65 - 99 mg/dL) 114 H Hematology CBC w Diff NO MAN DIFF REQ WBC (4.8 - 10.8 /CUMM) 6.8 RBC (4.70 - 6.10 /CUMM) 4.04 L Hgb (14.0 - 18.0 G/DL) 12.6 L Hct (42 - 52 %) 36.3 L MCV (80.0 - 94.0 FL) 89.8 MCH (27.0 - 31.0 PG) 31.2 H MCHC (33.0 - 37.0 G/DL) 34.7 RDW (11.5 - 14.5 %) 12.9 Plt Count (130 - 400 /CUMM) 96 L MPV (7.4 - 10.4 FL) 8.1 Gran % (42.2 - 75.2 %) 78.7 H Lymphocytes % (20.5 - 51.1 %) 15.1 L Monocytes % (1.7 - 9.3 %) 5.6 Eosinophils % (0 - 5 %) 0.4 Basophils % (0.0 - 2.0 %) 0.2 Absolute Granulocytes (1.4 - 6.5 /CUMM) 5.3 Absolute Lymphocytes (1.2 - 3.4 /CUMM) 1.0 L Absolute Monocytes (0.10 - 0.60 /CUMM) 0.4 Absolute Eosinophils (0.0 - 0.7 /CUMM) 0 Absolute Basophils (0.0 - 0.2 /CUMM) 0 Urines Urine Color (YEL,AMB,STR) YEL Urine Clarity (CLEAR) CLEAR Urine pH (5.0 - 8.0) 6.0 Ur Specific [place] (1.001 - 1.035) 1.010 Urine Protein (NEG,<30 MG/DL) NEG Urine Ketones (NEG) 15 H Urine Nitrite (NEG) NEG Urine Bilirubin (NEG) NEG Urine Urobilinogen (0.1 - 1.0 EU/dl) 0.2 Ur Leukocyte Esterase (NEG) NEG Ur Microscopic EXAM NOT REQUIRED Urine Hemoglobin (NEG) NEG Urine Glucose (N MG/DL) >=1000 H / 1135 Chemistry Sodium (137 - 145 mmol/L) 133 L Potassium (3.5 - 5.1 mmol/L) 4.2 Chloride (98 - 107 mmol/L) 98 Carbon Dioxide (22 - 30 mmol/L) 24 Anion Gap (5 - 16) 11 BUN (9 - 20 mg/dL) 11 Creatinine (0.7 - 1.2 mg/dL) 0.8 Estimated GFR (>60 ml/min) > 60 BUN/Creatinine Ratio (7 - 25 %) 13.8 Glucose (65 - 99 mg/dL) 569 *H Hemoglobin A1c (4.2 - 5.8 %) 12.4 H Calcium (8.4 - 10.2 mg/dL) 9.1 Total Bilirubin (0.2 - 1.3 mg/dL) 0.6 AST (17 - 59 U/L) 33 ALT (21 - 72 U/L) 41 Alkaline Phosphatase (< 127 U/L) 207 H Total Protein (6.3 - 8.2 g/dL) 6.8 Albumin (3.5 - 5.0 g/dL) 3.9 Globulin (1.9 - 4.2 gm/dL) 2.9 Albumin/Globulin Ratio (1.1 - 2.2 %) 1.3 Hematology CBC w Diff NO MAN DIFF REQ WBC (4.8 - 10.8 /CUMM) 8.4 RBC (4.70 - 6.10 /CUMM) 4.58 L Hgb (14.0 - 18.0 G/DL) 14.3 Hct (42 - 52 %) 40.7 L MCV (80.0 - 94.0 FL) 88.8 MCH (27.0 - 31.0 PG) 31.3 H MCHC (33.0 - 37.0 G/DL) 35.2 RDW (11.5 - 14.5 %) 12.9 Plt Count (130 - 400 /CUMM) 101 L MPV (7.4 - 10.4 FL) 9.1 Gran % (42.2 - 75.2 %) 85.1 H Lymphocytes % (20.5 - 51.1 %) 9.7 L Monocytes % (1.7 - 9.3 %) 4.1 Eosinophils % (0 - 5 %) 0.2 Basophils % (0.0 - 2.0 %) 0.9 Absolute Granulocytes (1.4 - 6.5 /CUMM) 7.1 H Absolute Lymphocytes (1.2 - 3.4 /CUMM) 0.8 L Absolute Monocytes (0.10 - 0.60 /CUMM) 0.3 Absolute Eosinophils (0.0 - 0.7 /CUMM) 0 Absolute Basophils (0.0 - 0.2 /CUMM) 0.1
[2017-07-17] MEDS ORDERED: LEVEMIR FL100 UNIT/1 SC ×2 (09:06→11:45)
[2017-07-17] MEDS ORDERED: NOVOLOG FL100 UNIT/1 SC ×2 (09:06→11:45)
--- NOTE | 2017-07-17 09:07 | Patient Discharge Instructions ---
Discharge Instructions General Discharge Information You were seen/treated for: Diabetes Special Instructions: 1. Take medication as instructed. 2. Follow up with Dr. Kelsey (call center receptionist). 3. Follow up with Dr. Cummins on ThursdayJuly 21. 4. Follow up with pcp and oncologist. 5. Stop aspirin until the procedure on July 21. Diet Continue normal diet: No Recommended Diet: Diabetic Activity Full Activity/No Limits: No Activity Self Limited: Yes Acute Coronary Syndrome Inclusion Criteria At DC or during hospital stay patient has or had the following: ACS DIAGNOSIS No Discharge Core Measures Meds if any: Prescribed or Continued at Discharge Meds if any: NOT Prescribed or Continued at Discharge Congestive Heart Failure Inclusion Criteria At DC or during hospital stay patient has or had the following: CHF DIAGNOSIS No Discharge Core Measures Meds if any: Prescribed or Continued at Discharge Meds if any: NOT Prescribed or Continued at Discharge Cerebrovascular accident Inclusion Criteria At DC or during hospital stay patient has or had the following: CVA/TIA Diagnosis No Discharge Core Measures Meds if any: Prescribed or Continued at Discharge Meds if any: NOT Prescribed or Continued at Discharge Venous thromboembolism Inclusion Criteria VTE Diagnosis No VTE Type NONE VTE Confirmed by (Test) NONE Discharge Core Measures - Per Current guidelines, there needs to be overlap - treatment for the first 5 days of Warfarin therapy. - If discharged on Warfarin prior to 5 days of - overlap therapy, the patient will need to be - assessed for post discharge needs including - *Post discharge parental anticoagulation - *Warfarin and/or parental anticoagulation education - *Follow up date to check INR post discharge At least 5 days overlap therapy as Inpatient No Meds if any: Prescribed or Continued at Discharge Note: Overlap Therapy is Warfarin and Anticoagulant Meds if any: NOT Prescribed or Continued at Discharge
[2017-07-17] MEDS ORDERED: CLOPIDOGREL75 M1 PO (09:53)
[2017-07-17 13:52] VITALS: BP 122/78
--- NOTE | 2017-07-18 01:33 | Discharge Summary ---
Visit Information Visit Dates Admission Date: 07/15/17 Discharge Date: 07/17/17 Hospital Course Course Attending Physician: Breana Copeland MD Primary Care Physician: Jazmin Sherman MD Consulting Request: 1 Consulting Specialty: Endocrinology Consulting Request: 2 Consulting Specialty: General Surgery Hospital Course: Patient is a 57-year-old male with past medical history of colon cancer status past bowel resection without ostomy currently on a chemotherapy every 3 weeks, hypertension, CAD status post [place] and stents currently on aspirin, hyperlipidemia presenting this admission after being seen by his oncologist, Dr. Sarah due to weakness and hyperglycemia. Patient was admitted to the general medical floor for management of the followin. New onset diabetes Patient presented with classic symptoms with polyruia, polydipsia, +ketonuria, glycosuria, multiple elevated glucose readings. Patient has +family history placing him at higher risk. Patient is currently receiving chemotherapy for colon cancer which puts him at greater risk of infection which may be a precipitating factor. Patient's high sugar intake over the past week and chemotherapy which is given in a suspension with a high glucose content in conjunction with the prednisone he receives during chemotherapy may have precipitated this event. Infectious etiologies were investigated and were negative. Patient's Hemoglobin A1c this admission was 12.4. Endocrinology was consulted. Patient received diabetic teaching prior to discharge. - Follow up with endocrinology (Dr. Kelsey) - Continue Levemir 6 units at bedtime - Continue Novolog as prescribed - VNA services provided for further diabetic teaching until the patient is comfortable managing his insulin 2. History of Colon Cancer s/p resection with a Port Catheter in the Right Subclavian Chest xray showing coiling and retraction of the catheter. Prior to discharge patient was seen by surgery to have the catheter adjusted. - Patient has an appointment with Dr. Cummins on July 21 to adjust the catheter - Patient was instructed to hold aspirin until the procedure 3. History of CAD s/p [place] and stent on aspirin only, HTN, HLD - continue metoprolol and pravastatin - hold aspirin until the procedure on July 21, 2017 Allergies: Coded Allergies: atorvastatin (From LIPITOR) (Intermediate, RASH 01/02/17) Pertinent Lab Results: SERVICE DATE: 07/15/17 EXAM TYPE: RAD - XRY-CHEST XRAY, TWO VIEWS EXAMINATION: XR CHEST CLINICAL INFORMATION: EVALUATE FOR ANY SOURCE OF INFECTION COMPARISON: Chest x-ray 01/06/2017 TECHNIQUE: 2 views of the chest were obtained. FINDINGS: The central port catheter is is been placed via a right subclavian approach. The catheter is coiled over the base of the right neck with the catheter tip at the right superior mediastinum. There is no pneumothorax. Lungs are clear. Cardiac and mediastinal contours are normal. No pulmonary vascular congestion. No pleural effusion. IMPRESSION: 1. Central port catheter has been placed via a right subclavian approach. The catheter is coiled over the base of the right neck with the catheter tip at the right superior mediastinum. 2. No acute abnormality of the chest. Lungs are clear. Disposition Summary Disposition Principal Diagnosis: New onset diabetes Additional Diagnosis: Port Catheter Coiled and Retracted in the Right Subclavian Discharge Disposition: home health services Discharge Instructions General Discharge Information Code Status: Full Code Patient's Diet: Consistent Carbohydrate Diet Patient's Activity: Self-Limited Follow-Up Instructions/Appts: 1. Follow up with Dr. Fajardo on July 21 for adjustment of the port cather 2. Follow up with Dr. Kelsey, endocrinology w/in 1 week of discharge 3. Follow up with Dr. Sarah, oncology for chemotherapy on July 22 4. Take insulin as directed and maintain a log book of sugars 5. Follow up with your pcp within 1 week of discharge Medications at Discharge Discharge Medications: Stop taking the following medications: Clopidogrel Bisulfate (Clopidogrel) 75 MG TABLET ORAL DAILY Continue taking these medications: Metoprolol Succ XL (Toprol XL) 25 MG TAB 0.5 Tablet ORAL DAILY Comments: Last Taken: 07/17/17 Time: 8:00 AM Pravastatin Sodium (Pravachol) 80 MG TABLET 1 Tablet ORAL DAILY Comments: Last Taken: 07/16/17 Time: 5:30 PM Aspirin (Aspirin*) 81 MG TAB.CHEW 1 Tablet ORAL DAILY Comments: Last Taken: 07/17/17 Time: 8:00 AM Start taking the following new medications: Insulin Aspart, Recombinant (Novolog Flexpen) 100 UNIT/ML INSULN.PEN 0 Inject into fatty tissue SEE INSTRUCTIONS Qty = 5 No Refills Instructions: BG <80 - drink juice 80-150 3 units 151-200 4 201-250 5 251-300 6 301-350 7 351-400 8 >400 -8, call Comments: Last Taken: 07/17/17 Time: 12:30 PM Insulin Detemir (Levemir Flextouch) 100 UNIT/ML (3 ML) INSULN.PEN 6 Units Inject into fatty tissue AT BEDTIME Qty = 5 No Refills Instructions: . Comments: Last Taken: 07/16/17 Time: 9:30 PM Copies To: Whit CASTELLON,Jazmin; Keara CASTELLON,Damon; Maria G CASTELLON,Senthil Vera
== END 2017-07-17 14:47 | disposition home health service (06) | DRG 638 ==
LOC: ERH 10:00 → 2NB 16:05 → ERHI 16:05 → ENRESERV 16:50 → ENTRNSPT 17:24 → EDTRNSPTSTS 17:31 → EDTRNSPT 17:31 → CMPTRNSPT 17:55 → 2NB 17:57
PROVIDERS: Student in an Organized Health Care Education/Training Program
DX: E11.65 Type 2 diabetes mellitus with hyperglycemia (principal); E87.1 Hypo-osmolality and hyponatremia; Z85.038 Personal history of other malignant neoplasm of large intestine; Z90.49 Acquired absence of other specified parts of digestive tract; Z92.21 Personal history of antineoplastic chemotherapy; Z93.4 Other artificial openings of gastrointestinal tract status; I25.10 Atherosclerotic heart disease of native coronary artery without angina pectoris; Z98.61 Coronary angioplasty status; E78.5 Hyperlipidemia, unspecified; Z79.82 Long term (current) use of aspirin; I25.2 Old myocardial infarction; I10 Essential (primary) hypertension; Z96.89 Presence of other specified functional implants
CPT/HCPCS: 2NBSP; 36415; 71046; 81003; 82436; 87040; 87086; 96360; 96361; J1642; J1650; J1815; J3490